=== PATIENT | female | born 1990 | race African-American/Black ===

== ENCOUNTER 2018-09-26 10:55 | Day surgery (SDC) | payer MEDICAID, OTHER ==
[~2018-09-26 10:55] MED LIST: KETOROLAC TROMETHAMINE 30 MG/1ML VIAL ONE; LACTATED RINGERS 1,000 ML IV.SOLN IV ONE; LIDOCAINE HCL 2% PF 100MG/5ML VIAL IJ ONE; MIDAZOLAM HCL 2 MG/2 ML VIAL ONE; ONDANSETRON HCL/PF 4 MG/ 2ML VIAL ONE; PROPOFOL 200 MG/20 ML VIAL IV ONE; SEVOFLURANE 250 ML LIQUID IH ONE; fentaNYL CITRATE/PF 100 MCG/2 ML INJ. ONE
== END 2018-09-26 13:40 | disposition home or self-care (01) ==
LOC: OPSURG 10:55 → OUT 10:55 → EDSTATUS 15:03
PROVIDERS: ATTEND Specialist
DX: M99.15 Subluxation complex (vertebral) of pelvic region (principal); M70.62 Trochanteric bursitis, left hip; M99.06 Segmental and somatic dysfunction of lower extremity; M47.817 Spondylosis without myelopathy or radiculopathy, lumbosacral region
CPT/HCPCS: 22505; 27275; J1885; J2001; J2250; J2405; J2704; J3010; J7120

== ENCOUNTER 2018-09-27 11:29 | Day surgery (SDC) | payer MEDICAID, OTHER | END 2018-09-27 13:50 | disposition home or self-care (01) | LOC: OPSURG 11:29 → EDSTATUS 15:02 | PROVIDERS: ATTEND Specialist | DX: M99.15 Subluxation complex (vertebral) of pelvic region (principal); M70.62 Trochanteric bursitis, left hip; M99.06 Segmental and somatic dysfunction of lower extremity; M47.817 Spondylosis without myelopathy or radiculopathy, lumbosacral region | CPT/HCPCS: 22505; 27275; J1885; J2001; J2250; J2405; J2704; J3010; J7120 ==

== ENCOUNTER 2018-09-28 09:24 | Day surgery (SDC) | payer MEDICAID, OTHER | END 2018-09-28 12:25 | disposition home or self-care (01) | LOC: OPSURG 09:24 | PROVIDERS: ATTEND Specialist | DX: M99.15 Subluxation complex (vertebral) of pelvic region (principal); M70.62 Trochanteric bursitis, left hip; M99.06 Segmental and somatic dysfunction of lower extremity; M47.817 Spondylosis without myelopathy or radiculopathy, lumbosacral region | CPT/HCPCS: 22505; 27275; J1885; J2001; J2250; J2405; J2704; J3010; J7120 ==